=== PATIENT | female | born 1955 | race Caucasian/White ===

== ENCOUNTER → 2019-10-21 | Outpatient (CLI) | payer MEDICARE, OTHER ==
--- NOTE | 2019-10-21 11:53 | XR ---
EXAMINATION TYPE: XR Hip Complete RT DATE OF EXAM: 10/21/2019 COMPARISON: NONE HISTORY: Pain TECHNIQUE: 2 views submitted FINDINGS: There is no evidence of erosive change or acute fracture. Hypertrophic change involving the acetabulum. Sclerotic density involving the acetabular roof is like ly related to bone. IMPRESSION: 1. Hypertrophic change of the acetabulum can be associated with femoral acetabular impingement correl ate with MRI as warranted.
--- NOTE | 2019-10-21 11:59 | XR ---
EXAM TYPE: LUMBAR SPINE X RAY SERIES COMPARISON: NONE HISTORY: Pain TECHNIQUE: 4 views are submitted. FINDINGS: Alignment is anatomic. The pedicles are intact. The transverse processes are intact. There is mult ilevel moderate degenerative disc disease with facet arthropathy. Grade 1 anterolisthesis L4 on L5 wi th severe facet arthropathy at L4-5 and L5-S1. Vascular calcifications are seen. Diffuse osteopenia n oted. IMPRESSION: 1. Multilevel degenerative disc disease with facet arthropathy and grade 1 anterolisthesis L4 on L5. Foraminal encroachment L4-5 and L5-S1 suspected. Recommend MRI.
== END | disposition home or self-care (01) ==
LOC: RADXRYALE 11:11
PROVIDERS: ATTEND Physician Assistant Medical
DX: M89.38 Hypertrophy of bone, other site (principal); M43.16 Spondylolisthesis, lumbar region; M51.36 Other intervertebral disc degeneration, lumbar region; M46.96 Unspecified inflammatory spondylopathy, lumbar region
CPT/HCPCS: 72110; 73502

== ENCOUNTER → 2019-11-25 | Outpatient (CLI) | payer MEDICARE, OTHER ==
--- NOTE | 2019-11-26 11:39 | MM ---
Reason for exam: screening (asymptomatic). Last mammogram was performed 10 years and 6 months ago. History: Patient is postmenopausal. Family history of breast cancer in paternal cousin at age 53. Took hormonal contraceptives for 8 years. Physical Findings: A clinical breast exam by your physician is recommended on an annual basis and results should be correlated with mammographic findings. MG 3D Screening Mammo W/Cad Bilateral CC and MLO view(s) were taken. Prior study comparison: May 26, 2009, bilateral diagnostic digital mammog. April 18, 2008, bilateral [place] screening mammogram, performed at [facility]. The breast tissue is heterogeneously dense. This may lower the sensitivity of mammography. There is no discrete abnormality. No significant changes when compared with prior studies. ASSESSMENT: Negative, BI-RAD 1 RECOMMENDATION: Routine screening mammogram of both breasts in 1 year.
== END | disposition home or self-care (01) ==
LOC: RADMAMWWP 10:59
PROVIDERS: ATTEND Family Medicine
DX: Z12.31 Encounter for screening mammogram for malignant neoplasm of breast (principal)
CPT/HCPCS: 77063; 77067

== ENCOUNTER → 2022-01-12 | Outpatient (CLI) | payer MEDICARE, OTHER ==
--- NOTE | 2022-01-12 09:47 | US ---
EXAMINATION TYPE: US duplex aorta DATE OF EXAM: 01/12/2022 COMPARISON: NONE CLINICAL HISTORY: Z13.6 Screening for cardiovascular disorders. EXAM MEASUREMENTS: Abdominal Aorta: Proximal: 1.9 x 1.9cm Mid: 1.5 x 1.7cm Distal: 1.5 x 1.4cm Right Iliac: 0.9 x 1.0cm Left Iliac: 0.9 x 1.0cm IMPRESSION: No evidence for abdominal aortic aneurysm
== END | disposition home or self-care (01) ==
LOC: RADUSWWP 09:14
PROVIDERS: ATTEND Family Medicine
DX: Z13.6 Encounter for screening for cardiovascular disorders (principal)
CPT/HCPCS: 93979

== ENCOUNTER → 2022-01-28 | Outpatient (CLI) | payer MEDICARE, OTHER ==
--- NOTE | 2022-02-01 13:50 | MM ---
Reason for exam: screening (asymptomatic). Last mammogram was performed 2 years and 2 months ago. History: Patient is postmenopausal. Family history of breast cancer in paternal cousin at age 53. Took hormonal contraceptives for 8 years. Physical Findings: A clinical breast exam by your physician is recommended on an annual basis and results should be correlated with mammographic findings. MG 3D Screening Mammo W/Cad Bilateral CC and MLO view(s) were taken. Prior study comparison: November 25, 2019, bilateral MG 3d screening mammo w/cad. There are scattered fibroglandular densities. Benign vascular calcifications laterally in both breasts. No significant changes when compared with prior studies. ASSESSMENT: Benign, BI-RAD 2 RECOMMENDATION: Routine screening mammogram of both breasts in 1 year.
== END | disposition home or self-care (01) ==
LOC: RADMAMWWP 15:02
PROVIDERS: ATTEND Family Medicine
DX: Z12.31 Encounter for screening mammogram for malignant neoplasm of breast (principal)
CPT/HCPCS: 77063; 77067

== ENCOUNTER → 2023-04-11 | Outpatient (CLI) | payer MEDICARE, OTHER ==
--- NOTE | 2023-04-11 11:06 | XR ---
EXAMINATION TYPE: XR Hip Complete RT DATE OF EXAM: 04/11/2023 COMPARISON: 10/21/2019 HISTORY: Pain TECHNIQUE: 2 views submitted FINDINGS: There is no evidence of erosive change or acute fracture. Hypertrophic changes of the acetabulum. Sma ll spur extending off the greater trochanter. IMPRESSION: 1. No evidence of acute fracture or dislocation. Hypertrophic changes of the acetabulum can be associ ated with femoral acetabular impingement. 2. Small spur off the greater trochanter can be associated with trochanteric bursitis.
--- NOTE | 2023-04-11 11:10 | XR ---
EXAM TYPE: LUMBAR SPINE X RAY SERIES COMPARISON: 10/21/2019 HISTORY: Pain TECHNIQUE: 4 views are submitted. FINDINGS: There is a grade 1 anterolisthesis of L4 on L5. There is moderate degenerative disc disease L2-3 and L3-4. Severe facet arthropathy involving the lumbar spine. Vascular calcifications are seen as diffus e as IMPRESSION: 1. Multilevel mild to moderate degenerative change with grade 1 anterolisthesis L4 on L5. This appear s mildly progressed compared to prior exam. Severe facet arthropathy at multiple levels. Suspect fora maicol encroachment L4-5 and L5-S1. Recommend follow-up MRI.
== END | disposition home or self-care (01) ==
LOC: RADXRYALE 09:55
PROVIDERS: ATTEND Physician Assistant Medical
DX: M51.36 Other intervertebral disc degeneration, lumbar region (principal); M25.551 Pain in right hip; M89.351 Hypertrophy of bone, right femur; M76.891 Other specified enthesopathies of right lower limb, excluding foot; M47.816 Spondylosis without myelopathy or radiculopathy, lumbar region; M43.16 Spondylolisthesis, lumbar region
CPT/HCPCS: 72110; 73502

== ENCOUNTER → 2023-07-19 | Outpatient (CLI) | payer MEDICARE, OTHER ==
--- NOTE | 2023-07-20 09:06 | BD ---
EXAMINATION TYPE: Axial Bone Density DATE OF EXAM: 07/19/2023 CLINICAL HISTORY: 67 years old Female. ICD-10 CODE: [id number] disorder of bone dens Height: 5 ft 4 in Weight: 222 FRAX RISK QUESTIONS: Alcohol (3 or more units per day): no Family History (Parent hip fracture): no Glucocorticoids (More than 3mos): no (Ex: prednisone, prednisolone, methylprednisolone, dexamethasone, and hydrocortisone). History of Fracture in Adulthood: yes Secondary Osteoporosis: 1. Type 1 Diabetes: no 2. Hyperthyroidism: no 3. Menopause before 45: yes 4. Malnutrition: no 5. Chronic liver disease: no Rheumatoid Arthritis: no Current Tobacco Use: no RISK FACTORS HISTORY OF: Surgery to Spine/Hip(right/left)/Wrist (right/left): no Family History of Osteoporosis: no Active: yes Diet low in dairy products/other sources of calcium: no Postmenopausal woman: yes Take estrogen and/or progesterone medications: none now Lost more than 2 inches in height since high school: no Frequent falls: no Poor Health: good Hyperparathyroidism: no Adrenal Insufficiency: no MEDICATIONS: Additional Medications: metformin, forsega, blood pressure meds, statan, Allopurinol, Additional History: EXAM MEASUREMENTS: Bone mineral densitometry was performed using the [employer] System. Bone mineral density as measured about the Lumbar spine is: ----- L1-L4(G/cm2): 1.543 T Score Values are as follows: ----- L1: 2.8 ----- L2: 2.6 ----- L3: 3.2 ----- L4: 3.2 ----- L1-L4: 3.0 Z Score Values are as follows: ----- L1: 3.3 ----- L2: 3.0 ----- L3: 3.6 ----- L4: 3.7 ----- L1-L4: 3.5 baseline Bone mineral density about the R hip (g/cm2): 0.826 Bone mineral density about the L hip (g/cm2): 0.893 T Score values are as follows: -----R Neck: -1.5 -----L Neck: -1.0 -----R Total: 0.2 -----L Total: 0.4 Z Score values are as follows: -----R Neck: -0.6 -----L Neck: -0.2 -----R Total: 0.7 -----L Total: 1.0 baseline FRAX%s: The graph provided illustrates a 8.9 % chance for a major osteoporotic fx and a 1.1 % chance for the hips probability for fx in 10 years time. IMPRESSION: Osteopenia (T Score between -2.5 and -1). There is slightly increased risk of fracture and the patient may be considered for treatment. Re-Screen 2-5 years. NOTE: T-SCORE=SD OF THE YOUNG ADULT MEAN.
--- NOTE | 2023-07-20 18:05 | MM ---
Reason for Exam: Screening (asymptomatic). Last mammogram was performed 1 year(s) and 6 month(s) ago. Patient History: Menarche at age 13. First Full-Term at age 22. Left ovary removed at age 36. Right ovary removed at age 36. Hysterectomy at age 36. Postmenopausal. Patient used Hormonal Contraceptives for 8 years. Paternal cousin had breast cancer, age 53. Sister had breast cancer. Risk Values: Helene 5 year model risk: 3.0%. NCI Lifetime model risk: 9.5%. Prior Study Comparison: 05/26/2009 Bilateral Diagnostic Mammogram, [facility]. 11/25/2019 Bilateral Screening Mammogram, [facility]. 01/28/2022 Bilateral Screening Mammogram, [facility]. Tissue Density: The breast tissue is heterogeneously dense. This may lower the sensitivity of mammography. Findings: Analyzed By CAD. Pattern appears symmetrical and stable. No significant interval change is evident. No suspicious groups of microcalcifications, spiculated or lobular masses, architectural distortion or other secondary signs of malignancy are mammographically apparent. Overall Assessment: Benign, BI-RAD 2 Management: Screening Mammogram of both breasts in 1 year. A negative mammogram report should not preclude additional follow up of suspicious palpable abnormalities. Patient should continue monthly self breast exam. A clinical breast exam by your physician is recommended on an annual basis and results should be correlated with mammographic findings. Electronically signed and approved by: Abner Mccann D.O. Radiologis
== END | disposition home or self-care (01) ==
LOC: RADMAMWWP 14:34
PROVIDERS: ATTEND Family Medicine
DX: Z12.31 Encounter for screening mammogram for malignant neoplasm of breast (principal); M85.88 Other specified disorders of bone density and structure, other site; Z78.0 Asymptomatic menopausal state; Z80.3 Family history of malignant neoplasm of breast
CPT/HCPCS: 77063; 77067; 77080

== ENCOUNTER → 2024-08-13 | Outpatient (CLI) | payer MEDICARE, OTHER ==
--- NOTE | 2024-08-13 22:38 | MR ---
EXAMINATION TYPE: MR lumbar spine wo con DATE OF EXAM: 08/13/2024 COMPARISON: None HISTORY: Lower back pain, LLE radiculopathy. CONTRAST: 0 mL intravenous Gadavist. TECHNIQUE: Multiplanar, multisequence images of the lumbar spine were acquired. FINDINGS: Cord terminates at the L1 level. Vertebral body heights are preserved. There is some patch y signal through the vertebral bodies likely related to marrow conversion. Neural foramina appear nor mal. L5-S1: No significant disc bulge or disc herniation. No spinal canal stenosis. No foraminal stenosi s. L4-L5: Mild disc bulge is present with anterior thecal sac flattening. Facet hypertrophy and ligamen krista flavum laxity is present. No spinal canal stenosis is present. Some posterior lateral thecal sac compression is present. L3-L4: There is a large central disc herniation with moderate anterior thecal sac compression. Facet hypertrophy and ligamentum flavum laxity is present. Appears to be some spinal canal stenosis and 0.7 cm. Disc material extends posterior to the L3 level. There is a grade 1 spondylolisthesis. L2-L3: No significant disc bulge or disc herniation. No spinal canal stenosis. No foraminal stenosi s. Mild facet hypertrophy is present. Left ligamentum flavum laxity has posterior lateral thecal sac compression at this level. L1-L2: No significant disc bulge or disc herniation. No spinal canal stenosis. No foraminal stenosi s. T12-L1: No significant disc bulge or disc herniation. No spinal canal stenosis. No foraminal stenos is. IMPRESSION: 1. There is a large central disc herniation L3-4 extending posterior to L3. This has moderate anterio r thecal sac compression. In conjunction with some facet hypertrophy spinal canal stenosis and 0.7 cm is present. 2. Grade 1 spondylolisthesis of L3 anteriorly on L4 with disc uncovering. 3. Mild disc bulge at L4-5 with anterior thecal sac flattening. No stenosis is present. [facility], Workstation: [facility], 08/13/2024 10:36 PM
== END | disposition home or self-care (01) ==
LOC: RADMRIMAIN 16:02
PROVIDERS: ATTEND Family Medicine
DX: M51.36 Other intervertebral disc degeneration, lumbar region
CPT/HCPCS: 72148